=== PATIENT | male | born 1950 | race Caucasian/White ===

== ENCOUNTER → 2021-07-17 09:20 | Outpatient (BNVA) | payer MEDICARE, BC, OTHER, SELFPAY | PROVIDERS: Family Provider Nurse Practitioner; PCP Nurse Practitioner; Visit Provider Surgery | DX: Z12.11 Encounter for screening for malignant neoplasm of colon (principal); Z80.0 Family history of malignant neoplasm of digestive organs | CPT/HCPCS: 99203 ==

== ENCOUNTER → 2021-07-25 12:44 | Outpatient (BNVA) | payer MEDICARE, OTHER, BC, SELFPAY | PROVIDERS: Family Provider Nurse Practitioner; PCP Nurse Practitioner; Referring Provider Nurse Practitioner; Visit Provider Nurse Practitioner Family | DX: R39.9 Unspecified symptoms and signs involving the genitourinary system (principal); Z12.5 Encounter for screening for malignant neoplasm of prostate | CPT/HCPCS: 51741; 51798; 81003; 99203; G0103 ==

== ENCOUNTER 2021-08-29 07:05 | Day surgery (SDC) | payer MEDICARE, OTHER, BC, SELFPAY ==
[2021-08-27 10:45] VITALS: BMI 28.2
[2021-08-29 07:45] VITALS: BP 138/87; PULSE 85; RESP 18; TEMP 36.4; O2SAT 97
[2021-08-29] MEDS: sodium chloride 0.9% 1,000 ML 30 ML IV (08:10)
--- NOTE | 2021-08-29 09:07 | ANES.PREANE2 ---
Pre-Anesthetic Assessment Height/Weight: Height 1.85 m Weight 97.069 kg Temp Pulse Resp BP Pulse Ox 97.5 F L 85 18 138/87 97 08/29/21 07:45 08/29/21 07:45 08/29/21 07:45 08/29/21 07:45 08/29/21 07:45 Preop Diagnosis: diagnostic Operation Date: 08/29/21 09:30 Proposed Procedures s EGD(Not Applicable) - Guzman Pastor MD p Colonoscopy 87434/06895/z80.0/z12.11(Not Applicable) - Guzman Pastor MD Last intake: Intake Last Liquid Date 08/28/21 Last Liquid Time 23:30 Last Solid Date 08/27/21 Last Solid Time 08:00 GI GERD under good control Metabolic Hypothyroidism Anesthetic Plan ASA status: 2 Anesthesia: MAC Medications/Allergies Home Medications Medication Instructions Recorded Confirmed Last Taken Type levothyroxine 25 mcg capsule 25 mcg PO DAILY 11/15/19 08/27/21 Unknown History tplqzshk-wui-tqbfg acid 300 1 tab PO DAILY 07/25/21 08/27/21 Unknown History mcg-lycopene 600 mcg-lutein 300 mcg tablet (Centrum Silver Men) trazodone 100 mg tablet 200 mg PO DAILY tab 07/25/21 08/27/21 Unknown History ubidecarenone-omega 3-vit E 25 1 cap PO DAILY 07/25/21 08/27/21 Unknown History mg-150 (90-60) mg-200 unit capsule (Co C-53-[place] E-Fish Oil) Vitamin D (with calcium) 1 tab PO DAILY 08/27/21 08/27/21 Unknown History pantoprazole 20 mg tablet,delayed 20 mg PO DAILY 08/27/21 08/27/21 Unknown History release (Protonix) Allergies Allergy/AdvReac Type Severity Reaction Status Date / Time erythromycin base Allergy Unknown ADR-Gastrointestinal Verified 08/27/21 10:41 Upset Penicillins Allergy Unconscious Verified 08/27/21 10:41 Current Medications Generic Name Dose Route Start Last Admin Trade Name Freq PRN Reason Stop Dose Admin Sodium Chloride 1,000 mls @ 30 mls/hr 08/29/21 07:30 08/29/21 08:10 Sodium Chloride 0.9% IV 08/30/21 07:29 30 mls/hr .Q24H HARSHAD Administration PFSH Anesthesia Medical History Benign prostatic hyperplasia with lower urinary tract symptoms GERD (gastroesophageal reflux disease) Lower urinary tract symptoms (LUTS) Surgical History History of colonoscopy with polypectomy 2011 History of mandibular surgery Hx of cataract surgery Hx of hemorrhoidectomy Family History Family/Other No problems noted. Father , AT AGE 84 PANCREATIC CANCER Cancer Mother , AT AGE 88 Cancer Social History Smoking and tobacco status: never smoked Alcohol intake: current Alcohol intake frequency: holidays/special occasions only Adopted: No Caregiver/support person: No Lives independently: No Household members: spouse Marital status: Current occupational status: retired History of recent travel: No Data Anesthesia Cardiac Studies: No Data to Display
--- NOTE | 2021-08-29 09:58 | W.PM.OPSFHP ---
Same Day Surgery H&P Indication for Procedure/HPI DATE OF PROCEDURE: August 29, 2021 CHIEF COMPLAINT/INDICATIONFOR SURGICAL PROCEDURE: family history of colon cancer PREOP DIAGNOSIS: diagnostic PLANNED PROCEDURE: Operation Date: 08/29/21 09:30 Proposed Procedures s EGD(Not Applicable) - Guzman Pastor MD p Colonoscopy 35773/75292/z80.0/z12.11(Not Applicable) - Guzman Pastor MD Medications/Allergies* Home Medications Medication Instructions Recorded Confirmed Type levothyroxine 25 mcg capsule 25 mcg PO DAILY 11/15/19 08/27/21 History ktjwqeja-mre-cnitj acid 300 1 tab PO DAILY 07/25/21 08/27/21 History mcg-lycopene 600 mcg-lutein 300 mcg tablet (Centrum Silver Men) trazodone 100 mg tablet 200 mg PO DAILY tab 07/25/21 08/27/21 History ubidecarenone-omega 3-vit E 25 1 cap PO DAILY 07/25/21 08/27/21 History mg-150 (90-60) mg-200 unit capsule (Co B-11-Fgysgwq E-Fish Oil) Vitamin D (with calcium) 1 tab PO DAILY 08/27/21 08/27/21 History pantoprazole 20 mg tablet,delayed 20 mg PO DAILY 08/27/21 08/27/21 History release (Protonix) Allergies/Adverse Reactions Allergy/AdvReac Type Severity Reaction Status Date / Time erythromycin base Allergy Unknown ADR-Gastrointestinal Verified 08/27/21 10:41 Upset Penicillins Allergy Unconscious Verified 08/27/21 10:41 Current Medications: Generic Name Dose Route Start Last Admin Trade Name Freq PRN Reason Stop Dose Admin Sodium Chloride 1,000 mls @ 30 mls/hr 08/29/21 07:30 08/29/21 08:10 Sodium Chloride 0.9% IV 08/30/21 07:29 30 mls/hr .Q24H HARSHAD Administration Pertinent History/Comorbid Conditions* Medical History (Updated 07/25/21 @ 14:58 by Angie Saenz APRN) Benign prostatic hyperplasia with lower urinary tract symptoms GERD (gastroesophageal reflux disease) Lower urinary tract symptoms (LUTS) Surgical History (Updated 07/17/21 @ 09:44 by Guzman Pastor MD) History of colonoscopy with polypectomy 2011 History of mandibular surgery Hx of cataract surgery Hx of hemorrhoidectomy Family History (Updated 11/22/19 @ 15:56 by BYRON Riley) Father, AT AGE 84 PANCREATIC CANCER Mother, AT AGE 88 Cancer Father Mother Social History Smoking and tobacco status: never smoked Alcohol intake: current Alcohol intake frequency: holidays/special occasions only Adopted: No Caregiver/support person: No Lives independently: No Household members: spouse Marital status: Current occupational status: retired History of recent travel: No Pertinent Exam Findings alert, oriented x 3 and regular rate & rhythm Recommendations Surgery/Procedure today Coding Level of Care Code Acute Retail Customer Service Representative for Seymour Negron
[2021-08-29 10:27] VITALS: BP 122/80; PULSE 78; RESP 16; TEMP 36.2; O2SAT 97
[2021-08-29 10:37] VITALS: BP 100/67; PULSE 77; RESP 16; O2SAT 96
--- NOTE | 2021-08-29 13:22 | ANE.PACU2 ---
Inpatient post-anesthesia follow up: Vital signs: Temperature 97.2 F Pulse Rate 77 Respiratory Rate 16 Blood Pressure 100/67 Pulse Oximetry 96 Oxygen Delivery Me thod Room Air Oxygen Flow Rate 2 Fraction of Inspir ed Oxygen Hydration adequate: Yes Nausea and vomiting: No Pain level: 1 Mental status: Baseline
== END 2021-08-29 11:00 | disposition home or self-care (01) ==
PROVIDERS: PCP Nurse Practitioner; Visit Provider Surgery
PROC: 0DJ08ZZ Inspection of Upper Intestinal Tract, Via Natural or Artificial Opening Endoscopic (ICD-10-PCS; CPT 43235; principal; 2021-08-29 09:30)
PROC: 0DJD8ZZ Inspection of Lower Intestinal Tract, Via Natural or Artificial Opening Endoscopic (ICD-10-PCS; CPT 45378; 2021-08-29 09:30)
DX: Z12.11 Encounter for screening for malignant neoplasm of colon (principal); Z80.0 Family history of malignant neoplasm of digestive organs; K29.50 Unspecified chronic gastritis without bleeding; B96.81 Helicobacter pylori [H. pylori] as the cause of diseases classified elsewhere; K57.30 Diverticulosis of large intestine without perforation or abscess without bleeding; E03.9 Hypothyroidism, unspecified; N40.0 Benign prostatic hyperplasia without lower urinary tract symptoms
CPT/HCPCS: 43239; 88305; G0121; J2704; J7030

== ENCOUNTER → 2021-10-11 10:31 | Outpatient (BNVA) | payer MEDICARE, OTHER, BC, SELFPAY | PROVIDERS: PCP Nurse Practitioner Family; Visit Provider Urology | DX: R39.9 Unspecified symptoms and signs involving the genitourinary system (principal); R39.13 Splitting of urinary stream | CPT/HCPCS: 81003; 99213 ==

== ENCOUNTER → 2021-11-23 09:54 | Outpatient (BNVA) | payer MEDICARE, OTHER, BC, SELFPAY | PROVIDERS: PCP Nurse Practitioner Family; Visit Provider Urology | DX: R39.9 Unspecified symptoms and signs involving the genitourinary system (principal); R39.13 Splitting of urinary stream | CPT/HCPCS: 51741; 51798; 81003; 99213 ==

== ENCOUNTER 2022-05-27 15:30 | Outpatient (CLI) | payer MEDICARE, OTHER, BC, SELFPAY ==
--- NOTE | 2022-05-27 15:54 | XRR_ITS ---
PROCEDURE INFORMATION: Exam: XR Lumbosacral Spine Exam date and time: 05/27/2022 3:57 PM Age: 72 years old Clinical indication: Low back pain; Additional info: Back pain, muscle spasm, groin pain TECHNIQUE: Imaging protocol: Radiologic exam of the lumbosacral spine. Views: 6 or more views. Including flexion and extension views. COMPARISON: CR XR lumbar spine min 4V [id number] 07/20/2015 2:40 PM FINDINGS: Bones/joints: Lumbar curvature and alignment is unremarkable. There are mild degenerative changes throughout the lumbar spine with mild disc space narrowing, end plate sclerosis and endplate osteophytic lipping. There is mild facet arthrosis lower lumbar spine. Osseous structures are otherwise unremarkable. There is no fracture or spondylolisthesis. Pedicles are intact. Soft tissues: Small calcifications projecting over the left renal fossa possibly representing renal stones. XR/XR lumbar spine 6V w f/e [id number] IMPRESSION: Mild degenerative changes lumbar spine as discussed above. No acute bony abnormalities
== END 2022-05-27 15:31 | disposition home or self-care (01) ==
PROVIDERS: PCP Nurse Practitioner Family; Visit Provider Nurse Practitioner Family
DX: M62.838 Other muscle spasm (principal); M54.9 Dorsalgia, unspecified
CPT/HCPCS: 72114

== ENCOUNTER 2022-09-06 10:26 | Outpatient (CLI) | payer MEDICARE, OTHER, BC, SELFPAY ==
--- NOTE | 2022-09-06 10:40 | CT_ITS ---
WS: [id number] CT SINUSES TECHNIQUE: Noncontrast CT of the paranasal sinuses with coronal and sagittal reformatted images. CLINICAL INFORMATION: CHRONIC RHINITIS COMPARISON: CT 2012 DLP: 412.[address] scans at [facility] use at least one of these dose optimization techniques: automated e xposure control; mA and/or kV adjustment per patient size (includes targeted exams where dose is matc hed to clinical indication); or iterative reconstruction. FINDINGS: Minimal nasal septal deviation. Small leftward directed spur. Narrowing of the ostiomeatal units bila terally with mild mucosal thickening. RIGHT maria g bullosa. Mild mucosal thickening in the ethmoid ai r cells. Frontal sinuses and maxillary sinuses are well aerated. Mastoid air cells are well aerated. Bilateral Agger Nasi cells. Small polypoid lesion along the head LEFT middle turbinate and middle johnathan tus measuring 7.3 mm Normal visualized posterior nasopharynx. Normal parapharyngeal fat. CT/CT sinus wo con* [id number] IMPRESSION: 1. Minimal nasal deviation with a tiny leftward directed spur 2. Paranasal sinuses are well aerated with mild mucosal thickening ethmoid air cells. 3. Small RIGHT maria g bullosa. 4. Small polypoid lesion along the head LEFT middle turbinate and middle meatu s measuring 7.3 mm. 5. Mild narrowing of the ostiomeatal units bilaterally. 6. Mastoid air cells well aerated.
== END 2022-09-06 10:27 | disposition home or self-care (01) ==
PROVIDERS: PCP Nurse Practitioner Family; Visit Provider Internal Medicine
DX: J32.9 Chronic sinusitis, unspecified (principal); J31.0 Chronic rhinitis; J34.2 Deviated nasal septum; J34.89 Other specified disorders of nose and nasal sinuses; J33.8 Other polyp of sinus
CPT/HCPCS: 70486

== ENCOUNTER → 2022-11-04 10:43 | Outpatient (BNVA) | payer MEDICARE, OTHER, BC, SELFPAY | PROVIDERS: PCP Nurse Practitioner Family; Visit Provider Otolaryngology | DX: J34.89 Other specified disorders of nose and nasal sinuses (principal); R22.0 Localized swelling, mass and lump, head; J34.3 Hypertrophy of nasal turbinates | CPT/HCPCS: 99204 ==

== ENCOUNTER → 2022-12-04 11:25 | Outpatient (BNVA) | payer MEDICARE, OTHER, BC, SELFPAY | PROVIDERS: PCP Nurse Practitioner Family; Visit Provider Otolaryngology | DX: J34.89 Other specified disorders of nose and nasal sinuses (principal); J34.3 Hypertrophy of nasal turbinates; R22.0 Localized swelling, mass and lump, head | CPT/HCPCS: 99215 ==

== ENCOUNTER 2023-01-02 07:57 | Day surgery (SDC) | payer MEDICARE, BC, SELFPAY ==
[2023-01-01 08:34] VITALS: BMI 27.4
[2023-01-02] VITALS (10 sets, daily range): BP systolic 124–147; BP diastolic 81–94; PULSE 59–77; RESP 14–20; TEMP 36.1–36.6; O2SAT 96–100
--- NOTE | 2023-01-02 08:11 | W.PM.OPSUD ---
Surgery/Procedure H&P Update DATE OF PROCEDURE: January 02, 2023 DATE H&P PERFORMED: 12/04/22 H&P UPDATE INFORMATION: I have reviewed H&P completed within last 30 days, I have examined patient prior to procedure and No changes to prior documentation CHANGES TO PREVIOUS DOCUMENTATION: No changes PREOP DIAGNOSIS: Turbinate hypertrophy/maria g bullosa/septal mass PRIMARY INDICATION FOR PROCEDURE: Right middle turbinate maria g bullosa/left nasal septal lesion/bilateral inferior turbinate hypertrophy. PLANNED PROCEDURE: Operation Date: 01/02/23 09:50 Proposed Procedures p bilateral turbinate reduction, maria g bulosa resection with exision of intra nasal lesion-[id number],65317,J34.89,R22.0(Bilateral) - Rex Diaz MD s Endoscopic Resection of Nasal Turbinate Endoscopic Resection Middle Turbinate Maria G Bullosa(Bilateral) - Rex Diaz MD s Excision Nasal Mass/Lesion(Bilateral) - Rex Diaz MD
--- NOTE | 2023-01-02 08:49 | ANES.PREANE2 ---
Pre-Anesthetic Assessment Height/Weight: Height 1.85 m Weight 94.347 kg Temp Pulse Resp BP Pulse Ox O2 Del Method 98 F 75 18 131/81 100 Room Air 01/02/23 08:25 01/02/23 08:25 01/02/23 08:25 01/02/23 08:25 01/02/23 08:25 01/02/23 08:26 Preop Diagnosis: Turbinate hypertrophy/maria g bullosa/septal mass Operation Date: 01/02/23 09:50 Proposed Procedures p bilateral turbinate reduction, maria g bulosa resection with exision of intra nasal lesion-08700,37482,72155,J34.89,R22.0(Bilateral) - Rex Diaz MD s Endoscopic Resection of Nasal Turbinate Endoscopic Resection Middle Turbinate Maria G Bullosa(Bilateral) - Rex Diaz MD s Excision Nasal Mass/Lesion(Bilateral) - Rex Diaz MD Familial anesthetic complications: none Was Beta Irina taken within 24 hours: N/A Was Clonidine taken within 24 hours: N/A Last intake: Intake Last Liquid Date 01/01/23 Last Liquid Time 23:55 Last Solid Date 01/01/23 Last Solid Time 19:30 Social No alcohol and No tobacco Exam alert, oriented x 3, clear to auscultation bilaterally and regular rate & rhythm Airway Submandibular: within normal limits Cervical ROM: within normal limits Mallampati: Class II Dentition: chipped GI Gastroesophageal Reflux Disease Metabolic Thyroid Disease Anesthetic Plan ASA status: 2 Anesthesia: General Medications/Allergies Home Medications Medication Instructions Recorded Confirmed Last Taken Type levothyroxine 25 mcg capsule 25 mcg PO DAILY 11/15/19 01/01/23 01/01/23 History uyatyiij-hg-qyyaf 300 mcg-K 60 1 tab PO DAILY 07/25/21 01/01/23 01/01/23 History mcg-lycop 600 mcg-lutein 300 mcg tablet (Centrum Silver Men) trazodone 100 mg tablet 200 mg PO DAILY 07/25/21 01/01/23 01/01/23 History ubidecarenone-omega 3-vit E 25 1 cap PO DAILY 07/25/21 01/01/23 01/01/23 History mg-150 (90-60) mg-200 unit capsule (Co B-94-Gmopcxc E-Fish Oil) Vitamin D (with calcium) 1 tab PO DAILY 08/27/21 12/04/22 Unknown History pantoprazole 20 mg tablet,delayed 20 mg PO DAILY 08/27/21 01/01/23 01/01/23 History release (Protonix) metronidazole 500 mg tablet 500 mg PO BID 14 days #28 tabs 08/31/21 01/01/23 01/01/23 Rx fluticasone propionate 50 1 spray intranasal DAILY 11/04/22 01/01/23 01/01/23 History mcg/actuation nasal spray,suspension (Allergy Relief (fluticasone)) loratadine 10 mg tablet (Allergy 10 mg PO DAILY 11/04/22 01/01/23 01/01/23 History Relief (loratadine)) Allergies Allergy/AdvReac Type Severity Reaction Status Date / Time erythromycin base Allergy Unknown ADR-Gastrointestinal Verified 01/01/23 08:31 Upset Penicillins Allergy Unconscious Verified 01/01/23 08:31 PENDING SALE TO [facility] Anesthesia Medical History Benign prostatic hyperplasia with lower urinary tract symptoms GERD (gastroesophageal reflux disease) Helicobacter pylori gastritis Lower urinary tract symptoms (LUTS) Surgical History H/O esophagogastroduodenoscopy (08/29/21) History of colonoscopy with polypectomy (08/29/21) 2011 History of mandibular surgery Hx of cataract surgery Hx of hemorrhoidectomy Family History Family/Other No problems noted. Father , AT AGE 84 PANCREATIC CANCER Cancer Mother , AT AGE 88 Cancer Social History Smoking and tobacco/nicotine status: never used tobacco/nicotine Alcohol intake: current Alcohol intake frequency: holidays/special occasions only Substance/Drug Use: never Adopted: No Caregiver/support person: No Lives independently: No Household members: spouse Marital status: Current occupational status: retired Data Anesthesia Cardiac Studies: No Data to Display
[2023-01-02] MEDS: sodium chloride 0.9% 1,000 ML 30 ML IV (08:52)
[2023-01-02] MEDS: famotidine 20 mg/2 mL INJ IVP (08:54)
--- NOTE | 2023-01-02 08:55 | ECG_ITS ---
[facility] Test Date: 2023-01-02 Pat Name: Rolo Muse Department: Room: Gender: Male Environmental Health And Safety Leader: : 1950 Requested By: Mann Jansen Order Number: [id number] Sylvester MD: Terri Goodwin M.D. Measurements Intervals [place] Rate: 63 P: 84 ID: 175 QRS: 69 QRSD: 84 T: 68 QT: 394 QTc: 405 Interpretive Statements SINUS RHYTHM No previous ECG available for comparison Electronically Signed On 01-02-2023 21:37:54 CDT by Terri Goodwin M.D. [email or web address]
[2023-01-02] MEDS: levofloxacin-dextrose 5 % 750 MG/150 ML PREMIX 100 MG IV (09:57)
[2023-01-02] MEDS: oxymetazoline 0.05% Nasal Spray 15 mL 1 SPRAY NOSTRIL-B (10:59)
[2023-01-02] MEDS: lidocaine-epi 2% 1.7mL Cartridge (OR Only) 10.8 ML XX (11:00)
[2023-01-02] MEDS: neomycin-poly-bacitracin oint 28 gm 1 APPLIC TOPICAL (11:00)
--- NOTE | 2023-01-02 11:07 | P.OP_ITS ---
Operative Report Date of procedure: January 02, 2023 Pre-op diagnosis: Left nasal septal mass/right middle turbinate maria g bullosa/bilateral inferior turbinate hypertrophy Post-op diagnosis: Same Post-op findings: Whitish-yellow 1 cm mass left mid septum removed with 1 single biopsy specimen. Inferior turbinates 4+ and reduced with submucous resection to 2+ bilaterally. Majority of bulbous portion of right middle turbinate maria g bullosa resected endoscopically Procedure done: Endoscopic resection of right middle turbinate maria g bullosa. Bilateral inferior turbinate submucous resection. Excisional biopsy of mass of left nasal septum. Implants: 2 Telfa packs and 2 septal splints Specimens removed/disposition: Same Pathology: Specimens include left nasal septal mass. Right middle turbinate maria g bullosa. Right inferior turbinate partial resection. Left inferior turbinate partial resection. Surgeon: Rex Diaz MD Anesthesia: General and Local Estimated blood loss: 20 mL Complications: No complications encountered Findings: Patient has had chronic nasal obstruction for an extended period of time. This has been refractory to medical therapy including steroid nasal sprays and antihistamines. The septum is very straight but has a mass in the midportion on the left side. The inferior turbinates are 4+ hypertrophic. The right middle turbinate has a large maria g bullosa based on CT scan. Brief History: 72-year-old male patient is being brought to the operating room at this time to undergo excision for biopsy of left mid nasal septal mass. She also has bilateral inferior turbinates that are 4+ and need to be reduced and she has a right middle turbinate maria g bullosa based on CT scan which is obstructing airflow superiorly on the right side. Therefore the patient is being brought to the operating room at this time to undergo excision of the nasal septal mass reduction of the inferior turbinates with submucous resection and endoscopic resection of the right middle turbinate maria g bullosa. The procedure its risks and complications of been explained in detail to the patient in the office setting. These risks include bleeding infection numbness scarring swelling bruising recurrence need for additional treatment continued nasal congestion and need for additional treatment or surgery in the future or potential need for steroid sprays in the future. With all these things understood and with anesthetic risks described as well informed consent was granted and witnessed. Procedure: Description of procedure: The patient was placed on the operating table in the supine position. Adequate general endotracheal tube anesthesia was obtained. He was then positioned into a semirecumbent position and the body tilted towards the surgeon towards the right side. The timeout was accomplished identifying the patient date of plan procedure allergies fire risk and medications given. With all in agreement the procedure continued. The patient's nose was packed with 6 cottonoids soaked in 12-hour Afrin. After several minutes and after trimming the nasal hairs I removed these packs and infiltrated the left side of the septum as well as both inferior turbinates and the right middle turbinate maria g bullosa with local. A total of 10.8 mL of 2% Xylocaine with 1- 100,000 epinephrine was utilized. Then the nose was repacked with the 6 cottonoids. The patient was then prepped and draped in usual fashion. Afrin packs were once again removed from the nose. The inferior turbinates were outfractured with a [place] elevator. This gave access to the abnormal mass on the mid septum on the left side. This appeared to be whitish-yellow in color and exophytic and raised off the septum by approximately 2 to 3 mm. This was excised and 1 bite of the Ayo forcep. This was taken down to the level of the periosteum at that point. This was sent as a separate specimen. Then attention was turned to the right middle turbinate maria g bullosa. Using endoscopic visualization and direct visualization turbinate scissors were used to cut and start the removal at the anteriormost portion. The superior attachment was left in place. Then the medial and lateral aspects of the maria g bullosa were to the point of the posterior attachment. This was removed in a piecemeal fashion. The maria g bullosa was left open superiorly. This was no longer obstructing. Then I turned attention to the inferior turbinates. Since they did not shrink down much with the Afrin and the injectable local with epinephrine I cauterized the medial aspect with a needle tip Bovie and since that did little to also reduce the mass size of the inferior turbinate I excised it with scissors removing the distal aspect of the soft tissue and some of the more proximal bone creating a submucous resection. This was done from anterior to posterior. Bleeding sites were controlled with needle tip Bovie. An identical procedure was then done on the left inferior turbinate. After the inferior turbinates were reduced they were to 2+ in size. A [place] elevator was able to be passed through both nasal chambers to the nasopharynx without obstruction. The nasal cavities were suctioned clean. 2 septal splints were coated with Neosporin and 1 was applied each side of the septum. These were then sutured in a through and through fashion with 3-0 Prolene. Then 2 Telfa packs were cut to size coated with Neosporin and 1 was applied each side of the nose extending from anterior to posterior. With this accomplished the mouth and oropharynx were suctioned clean. There was no sign of any active bleeding. The face was cleansed. It was dried. A drip pad was placed under the patient's nose and taped from cheek to cheek. The mouth was suctioned 1 last time. Drapes were removed and the patient was returned to anesthesia for wake-up and extubation. He tolerated the procedure well had an estimated blood loss of 20 mL and arrived in recovery in stable condition.
[2023-01-02] MEDS: fentaNYL 50 mcg/mL INJ 2mL IVP (11:30)
[2023-01-02] MEDS: HYDROcodone-acetaminophen 5-325 mg Tablet 1 TAB PO (12:29)
--- NOTE | 2023-01-02 12:50 | ANE.PACU2 ---
Inpatient post-anesthesia follow up: Airway intact: Yes Vital signs: Temperature 97.5 F Pulse Rate 67 Respiratory Rate 15 Blood Pressure 133/83 Pulse Oximetry 96 Oxygen Delivery Me thod Room Air Oxygen Flow Rate Fraction of Inspir ed Oxygen Hydration adequate: Yes Nausea and vomiting: No Pain level: 3 Mental status: Baseline
== END 2023-01-02 12:43 | disposition home or self-care (01) ==
PROVIDERS: PCP Nurse Practitioner Family; Visit Provider Otolaryngology
PROC: (CPT 30117; principal; 2023-01-02 09:40)
PROC: (CPT 30117; 2023-01-02 09:40)
PROC: 0HB1XZZ Excision of Face Skin, External Approach (ICD-10-PCS; CPT 30117; 2023-01-02 09:40)
DX: J34.89 Other specified disorders of nose and nasal sinuses (principal); J33.8 Other polyp of sinus; N40.1 Benign prostatic hyperplasia with lower urinary tract symptoms; N13.8 Other obstructive and reflux uropathy
CPT/HCPCS: 30117; 30130; 31240; 88305; 88307; 88311; 93005; J1100; J1956; J2405; J2704; J2710; J3010; J3490; J7030

== ENCOUNTER → 2023-01-10 11:16 | Outpatient (BNVA) | payer MEDICARE, OTHER, SELFPAY | PROVIDERS: PCP Nurse Practitioner Family; Visit Provider Otolaryngology | DX: Z48.810 Encounter for surgical aftercare following surgery on the sense organs (principal) | CPT/HCPCS: 99024 ==

== ENCOUNTER → 2023-01-27 09:27 | Outpatient (BNVA) | payer MEDICARE, OTHER, SELFPAY | PROVIDERS: PCP Nurse Practitioner Family; Visit Provider Otolaryngology | DX: Z48.810 Encounter for surgical aftercare following surgery on the sense organs (principal) | CPT/HCPCS: 99024 ==

== ENCOUNTER → 2023-02-24 13:34 | Outpatient (BNVA) | payer MEDICARE, BC, OTHER, SELFPAY | PROVIDERS: PCP Nurse Practitioner Family; Visit Provider Nurse Practitioner Family | DX: D48.5 Neoplasm of uncertain behavior of skin (principal); L72.0 Epidermal cyst; L57.8 Other skin changes due to chronic exposure to nonionizing radiation; D22.5 Melanocytic nevi of trunk; L57.0 Actinic keratosis | CPT/HCPCS: 11102; 17000; 99203 ==

== ENCOUNTER 2023-03-25 12:34 | Outpatient (CLI) | payer MEDICARE, BC, SELFPAY ==
--- NOTE | 2023-03-25 12:43 | XR_ITS ---
WS: [id number] Chest 2 views, 03/25/2023 Clinical Data: COUGH Comparison: None. Findings: No nodules, masses or effusions are seen. The heart is normal. The pulmonary vascularity is not increased. No pneumonia or pneumothorax is seen. The diaphragms are flattened. The aortic arch s hows mild tortuosity. Impression: Atherosclerosis and hyperinflation.
== END 2023-03-25 12:35 | disposition home or self-care (01) ==
LOC: RAD 12:38
PROVIDERS: PCP Nurse Practitioner Family; Visit Provider Nurse Practitioner Family
DX: R05.9 Cough, unspecified (principal); R91.8 Other nonspecific abnormal finding of lung field; I70.90 Unspecified atherosclerosis
CPT/HCPCS: 71046

== ENCOUNTER → 2023-04-30 10:47 | Outpatient (BNVA) | payer MEDICARE, BC, SELFPAY | PROVIDERS: PCP Nurse Practitioner Family; Visit Provider Dermatology | DX: D03.59 Melanoma in situ of other part of trunk (principal); C44.519 Basal cell carcinoma of skin of other part of trunk | CPT/HCPCS: 11603; 12035 ==

== ENCOUNTER 2023-05-13 12:08 | Outpatient (CLI) | payer MEDICARE, BC, OTHER, SELFPAY ==
--- NOTE | 2023-05-13 12:10 | CT_ITS ---
WS: [id number] CT CHEST, ABDOMEN AND PELVIS NONCONTRAST HISTORY: COUGH,UNSPECIFIED ABDOMINAL PAIN, GASTRO-ESOPHAGEAL REFLUX disease, history of melanoma. TECHNIQUE: Contiguous 5 mm axial imaging performed through the chest, abdomen and pelvis without IV c ontrast, oral contrast has been provided. Coronal and sagittal reformats chest. Coronal and sagittal reformats through the abdomen and pelvis. All CT scans at [facility] use at least one of thes e dose optimization techniques: automated exposure control; mA and/or kV adjustment per patient size (includes targeted exams where dose is matched to clinical indication); or iterative reconstruction. CONTRAST: None DLP: 875.93 mGy.cm COMPARISON: None available. Chest CT: Mild pulmonary hyperinflation. Multiple small nodules in the anterior RIGHT middle lobe mariangel ng the bronchial tree. There are additional similar nodules which may be calcified along the anterior RIGHT lower lobe. Mild bronchial wall thickening at the LEFT lung base. There is no mass. No pneumon ia. Normal aorta and pulmonary artery sizes. Normal heart. No adenopathy. No pericardial or pleural e ffusion. Soft tissue nodule is ill-defined measuring 1.3 x 2.9 cm in the posterior RIGHT lower thorax, posteri or to the 11th rib. Very nonspecific nodule no additional nodules. Abdomen CT: Liver is normal size. Low-attenuation mass lateral segment LEFT lobe measuring 1.6 cm is most consistent with a cyst. Cannot further characterized without IV contrast. Gallbladder and spleen are negative. Normal pancreas. Normal adrenal glands. Mild bilateral perinephric stranding. Bilatera l nonobstructing renal calculi. Several parapelvic cyst RIGHT kidney. Low-attenuation mass central la teral LEFT kidney measures 2.3 cm. Hounsfield units are low. This may be a small cyst. There are susie tional too small to characterize hypodensities. Cannot characterize further without IV contrast. Mild atherosclerosis aorta. Retroaortic LEFT renal vein. Stomach is normally distended with oral contrast. No small bowel obstruction. Mild diffuse constipati on. Normal appendix. Numerous diverticula throughout the distal colon. Diverticular burden has signif icantly increased in the sigmoid colon. No acute diverticulitis. No adenopathy or free fluid. Umbilical hernia containing fat only. Pelvic CT: Normally distended urinary bladder. Prostate measures 5.5 x 5.3 x 7.3 cm. There are severa l calcifications in the dependent portion of the urinary bladder. No free fluid or adenopathy in the pelvis. Mild increase in thoracic kyphosis. No osteoblastic or osteolytic bone disease. IMPRESSION: 1. There is several nodules in the RIGHT middle lobe and bilaterally in the lower lobes. Distributio n suggests this may be related to tree-in-bud airspace disease and may be chronic. No prior studies f or comparison. There is no focal mass or consolidation. Recommend 6-month chest CT follow-up. 2. No mediastinal or hilar adenopathy. 3. No abdominal or pelvic adenopathy. 4. Low-attenuation mass in the LEFT lobe of the liver. Most likely hepatic cyst. 5. Numerous bilateral renal calculi which are nonobstructing. 6. Small calcifications in the urinary bladder. Probably passed from the kidneys. 7. Advanced diverticular disease in the sigmoid colon without acute diverticulitis. 8. Prostate enlargement. 9. Ill-defined soft tissue nodule in the posterior RIGHT lower thorax measures 1.3 x 2.9 cm. This ca n be reevaluated by ultrasound. Favor this is benign. Recommend follow-up ultrasound at this time.
[2023-05-13] MEDS: iohexol 350 mg/mL 500 mL Btl (per mL) PO (12:31)
== END 2023-05-13 12:09 | disposition home or self-care (01) ==
LOC: RAD 12:09
PROVIDERS: PCP Nurse Practitioner Family; Visit Provider Nurse Practitioner Family
DX: R05.9 Cough, unspecified (principal); R91.8 Other nonspecific abnormal finding of lung field; K21.9 Gastro-esophageal reflux disease without esophagitis; Z85.820 Personal history of malignant melanoma of skin; R16.0 Hepatomegaly, not elsewhere classified; N20.0 Calculus of kidney; N21.0 Calculus in bladder; K57.30 Diverticulosis of large intestine without perforation or abscess without bleeding; N40.0 Benign prostatic hyperplasia without lower urinary tract symptoms
CPT/HCPCS: 71250; 74176; 99213; Q9967

== ENCOUNTER → 2023-05-22 10:58 | Outpatient (BNVA) | payer MEDICARE, BC, SELFPAY | PROVIDERS: PCP Nurse Practitioner Family; Visit Provider Surgery | DX: K21.9 Gastro-esophageal reflux disease without esophagitis (principal); R10.13 Epigastric pain | CPT/HCPCS: 99214 ==

== ENCOUNTER 2023-05-29 07:44 | Outpatient (CLI) | payer MEDICARE, OTHER, SELFPAY ==
--- NOTE | 2023-05-29 08:00 | US_ITS ---
WS: [id number] RIGHT UPPER QUADRANT ULTRASOUND HISTORY: Gastroesophageal reflux disease COMPARISON: None available. Liver: 14.6 cm in length. Normal size liver. Hepatic cyst measures 8 x 6 x 5 mm in the central RIGHT lobe. No mass. Portal Vein: Normal hepatopetal flow with monophasic waveform. Gallbladder: Normally distended gallbladder. There is a small hyperplastic polyp measuring 4 x 4 x 4 mm. No stones. No wall thickening. CBD: No images submitted. Pancreas: Nonvisualized. Right kidney: 10.0 cm in length. No renal obstruction. Small parapelvic cysts were noted on recent CT . Aorta and IVC: Unremarkable abdominal aorta and IVC. No ascites. IMPRESSION: 1. No cholelithiasis. 2. Small hyperplastic gallbladder polyp. 3. Small hepatic cyst. 4. No renal obstruction.
== END 2023-05-29 07:45 | disposition home or self-care (01) ==
LOC: RAD 07:51
PROVIDERS: PCP Nurse Practitioner Family; Visit Provider Surgery
DX: K82.4 Cholesterolosis of gallbladder (principal); K21.9 Gastro-esophageal reflux disease without esophagitis; R10.13 Epigastric pain
CPT/HCPCS: 76705

== ENCOUNTER 2023-07-02 06:14 | Day surgery (SDC) | payer MEDICARE, OTHER, BC, SELFPAY ==
[2023-07-02 06:30] VITALS: BP 124/86; PULSE 90; RESP 18; TEMP 36.4; O2SAT 97; BMI 26.6
[2023-07-02] MEDS: sodium chloride 0.9% 1,000 ML 30 ML IV (06:37)
--- NOTE | 2023-07-02 06:46 | ANES.PREANE2 ---
Pre-Anesthetic Assessment Height/Weight: Height 1.85 m Weight 91.626 kg Temp Pulse Resp BP Pulse Ox O2 Del Method 97.5 F L 90 18 124/86 97 Room Air 07/02/23 06:30 07/02/23 06:30 07/02/23 06:30 07/02/23 06:30 07/02/23 06:30 07/02/23 06:30 Preop Diagnosis: GERD Operation Date: 07/02/23 08:00 Proposed Procedures p 55224 egd K21.9,R10.13(Not Applicable) - Ok Bernabe DO Familial anesthetic complications: None Was Beta Irina taken within 24 hours: N/A Was Clonidine taken within 24 hours: N/A Last intake: Intake Last Liquid Date 07/01/23 Last Liquid Time 23:00 Last Solid Date 07/01/23 Last Solid Time 20:00 Social No alcohol and No tobacco Exam alert, oriented x 3 and regular rate & rhythm Airway Submandibular: within normal limits Mallampati: Class II Dentition: full History/ROS No significant history except as noted Pulmonary Chronic Obstructive Pulmonary Disease has inhaler, does not use them CV/HEM None reported None reported Hepatic None reported GI Gastroesophageal Reflux Disease Metabolic Thyroid Disease Musc/skel None reported Neuropsych None reported Anesthetic Plan ASA status: 2 Anesthesia: Anesthesia Evaluation and MAC Risk of > 500 ml blood loss (7ml/kg in children): No Medications/Allergies Home Medications Medication Instructions Recorded Confirmed Last Taken Type levothyroxine 25 mcg capsule 25 mcg PO DAILY 11/15/19 07/02/23 07/02/23 History oqriwvht-sb-dcopw 300 mcg-K 60 1 tab PO DAILY 07/25/21 07/02/23 07/01/23 History mcg-lycop 600 mcg-lutein 300 mcg tablet (Centrum Silver Men) trazodone 100 mg tablet 200 mg PO DAILY 07/25/21 07/02/23 07/01/23 History ubidecarenone-omega 3-vit E 25 1 cap PO DAILY 07/25/21 07/02/23 07/01/23 History mg-150 (90-60) mg-200 unit capsule (Co N-60-Oeaunwb E-Fish Oil) Vitamin D (with calcium) 1 tab PO DAILY 08/27/21 07/02/23 07/01/23 History fluticasone propionate 50 1 spray intranasal DAILY PRN 11/04/22 07/02/23 07/01/23 History mcg/actuation nasal allergies spray,suspension (Allergy Relief (fluticasone)) loratadine 10 mg tablet (Allergy 10 mg PO DAILY PRN allergies 11/04/22 07/02/23 07/01/23 History Relief (loratadine)) omeprazole 20 mg capsule,delayed 20 mg PO DAILY 06/30/23 07/02/23 07/01/23 History release Allergies Allergy/AdvReac Type Severity Reaction Status Date / Time erythromycin base Allergy Unknown ADR-Gastrointestinal Verified 07/02/23 06:28 Upset Penicillins Allergy Unconscious Verified 07/02/23 06:28 Current Medications Generic Name Dose Route Start Last Admin Trade Name Freq PRN Reason Stop Dose Admin Sodium Chloride 1,000 mls @ 30 mls/hr 07/02/23 06:30 07/02/23 06:37 Sodium Chloride 0.9% IV 07/03/23 06:29 30 mls/hr .Q24H HARSHAD Administration PFSH Anesthesia Medical History Helicobacter pylori gastritis Lower urinary tract symptoms (LUTS) Benign prostatic hyperplasia with lower urinary tract symptoms GERD (gastroesophageal reflux disease) Surgical History Hx of sinus surgery H/O esophagogastroduodenoscopy (08/29/21) History of mandibular surgery History of colonoscopy with polypectomy (08/29/21) 2011 Hx of cataract surgery Hx of hemorrhoidectomy Family History Family/Other No problems noted. Father , AT AGE 84 PANCREATIC CANCER Cancer Mother , AT AGE 88 Cancer Social History Smoking and tobacco/nicotine status: never used tobacco/nicotine Alcohol intake: current Alcohol intake frequency: holidays/special occasions only Substance/Drug Use: never Adopted: No Caregiver/support person: No Lives independently: No Household members: spouse Marital status: Current occupational status: retired Data Anesthesia Cardiac Studies: No Data to Display
--- NOTE | 2023-07-02 06:59 | PM.HP ---
Providers/Chief Complaint Primary Care Provider: Ashleigh Hughes NP Chief Complaint: K21.9, R10.13 History of Present Illness Rolo Muse is a 73 year old male Review of Systems General: Reports: 10 or more systems reviewed and unremarkable except in HPI and below Medications/Allergies Home Medications Medication Instructions Recorded Confirmed Last Taken Type levothyroxine 25 mcg capsule 25 mcg PO DAILY 11/15/19 07/02/23 07/02/23 History itpwlxid-gl-gkbav 300 mcg-K 60 1 tab PO DAILY 07/25/21 07/02/23 07/01/23 History mcg-lycop 600 mcg-lutein 300 mcg tablet (Centrum Silver Men) trazodone 100 mg tablet 200 mg PO DAILY 07/25/21 07/02/23 07/01/23 History ubidecarenone-omega 3-vit E 25 1 cap PO DAILY 07/25/21 07/02/23 07/01/23 History mg-150 (90-60) mg-200 unit capsule (Co P-27-Izildrq E-Fish Oil) Vitamin D (with calcium) 1 tab PO DAILY 08/27/21 07/02/23 07/01/23 History fluticasone propionate 50 1 spray intranasal DAILY PRN 11/04/22 07/02/23 07/01/23 History mcg/actuation nasal allergies spray,suspension (Allergy Relief (fluticasone)) loratadine 10 mg tablet (Allergy 10 mg PO DAILY PRN allergies 11/04/22 07/02/23 07/01/23 History Relief (loratadine)) omeprazole 20 mg capsule,delayed 20 mg PO DAILY 06/30/23 07/02/23 07/01/23 History release Allergies Allergy/AdvReac Type Severity Reaction Status Date / Time erythromycin base Allergy Unknown ADR-Gastrointestinal Verified 07/02/23 06:28 Upset Penicillins Allergy Unconscious Verified 07/02/23 06:28 PFSH Acute PFSH: Medical History Helicobacter pylori gastritis Lower urinary tract symptoms (LUTS) Benign prostatic hyperplasia with lower urinary tract symptoms GERD (gastroesophageal reflux disease) Surgical History Hx of sinus surgery H/O esophagogastroduodenoscopy (08/29/21) History of mandibular surgery History of colonoscopy with polypectomy (08/29/21) 2012 Hx of cataract surgery Hx of hemorrhoidectomy Family History Family/Other No problems noted. Father , AT AGE 84 PANCREATIC CANCER Cancer Mother , AT AGE 88 Cancer Social History Smoking and tobacco/nicotine status: never used tobacco/nicotine Alcohol intake: current Alcohol intake frequency: holidays/special occasions only Substance/Drug Use: never Adopted: No Caregiver/support person: No Lives independently: No Household members: spouse Marital status: Current occupational status: retired Vitals/I&O/Wt Last Vital Signs Temp 97.5 F L 07/02/23 06:30 Pulse 90 07/02/23 06:30 Resp 18 07/02/23 06:30 BP 124/86 07/02/23 06:30 Pulse Ox 97 07/02/23 06:30 O2 Del Method Room Air 07/02/23 06:30 Weight last 48 hrs Weight 202 lb A&P Assessment and plan (1) Epigastric pain: (2) GERD with esophagitis: Qualifiers: Esophagitis bleeding: without hemorrhage Qualified Code(s): K21.00 - Gastro-esophageal reflux disease with esophagitis, without bleeding Plan EGD Attestations Medical Necessity Statement*: Home Coding Level of Care Code Acute Code for Chg Fwd Diagnoses Epigastric pain R10.13 Gastroesophageal reflux disease with esophagitis without hemorrhage K21.00 Esophagitis bleeding: without hemorrhage
[2023-07-02 07:13] VITALS: BP 116/78; PULSE 67; RESP 14; TEMP 36.1; O2SAT 98
[2023-07-02 07:27] VITALS: BP 120/80; PULSE 64; RESP 16; O2SAT 96
[2023-07-02 07:40] VITALS: BP 131/70; PULSE 63; RESP 16; O2SAT 96
--- NOTE | 2023-07-02 15:23 | ANE.PACU2 ---
Inpatient post-anesthesia follow up: Airway intact: Yes Vital signs: Temperature 97.0 F Pulse Rate 63 Respiratory Rate 16 Blood Pressure 131/70 Pulse Oximetry 96 Oxygen Delivery Me thod Room Air Oxygen Flow Rate Fraction of Inspir ed Oxygen Hydration adequate: Yes Nausea and vomiting: No Pain level: 2 Mental status: Baseline
== END 2023-07-02 07:55 | disposition home or self-care (01) ==
PROVIDERS: PCP Nurse Practitioner Family; Visit Provider Surgery
PROC: 0DJ08ZZ Inspection of Upper Intestinal Tract, Via Natural or Artificial Opening Endoscopic (ICD-10-PCS; CPT 43235; principal; 2023-07-02 08:00)
DX: R10.13 Epigastric pain (principal); K21.00 Gastro-esophageal reflux disease with esophagitis, without bleeding; N40.1 Benign prostatic hyperplasia with lower urinary tract symptoms; N13.8 Other obstructive and reflux uropathy; J44.9 Chronic obstructive pulmonary disease, unspecified
CPT/HCPCS: 43239; 88305; 88342; J2704; J7030

== ENCOUNTER 2023-07-03 13:55 | Outpatient (CLI) | payer MEDICARE, OTHER, BC, SELFPAY ==
--- NOTE | 2023-07-03 14:01 | US_ITS ---
WS: [id number] THYROID ULTRASOUND HISTORY: NODULE OF SOFT TISSUE COMPARISON: None available. Right lobe: 1.0 cm x 1.7 cm x 3.3 cm (w x ap x l). Volume: 2.7 cm3. Mild heterogeneity within the central gland. This is an ill-defined area of decreased echogenicity ma y be a developing nodule. This area measures 0.7 x 0.5 x 0.9 cm. No echogenic focus or calcification. Left lobe: 1.3 cm x 1.5 cm x 2.9 cm (w x ap x l). Volume: 2.7 cm3. Normal size and echotexture. No significant or dominant nodules are present. Isthmus: 0.2 cm. IMPRESSION: 1. Subcentimeter vague hypoechoic area in the central RIGHT thyroid. Due to the small size and appea shirley TI-RADS does not recommend follow-up. 2. Negative LEFT thyroid.
== END 2023-07-03 13:56 | disposition home or self-care (01) ==
LOC: RAD 13:55
PROVIDERS: PCP Nurse Practitioner Family; Visit Provider Nurse Practitioner Family
DX: M79.89 Other specified soft tissue disorders (principal)
CPT/HCPCS: 76536

== ENCOUNTER → 2023-07-17 14:21 | Outpatient (BNVA) | payer MEDICARE, OTHER, BC, SELFPAY | PROVIDERS: PCP Nurse Practitioner Family; Visit Provider Surgery | DX: Z09 Encounter for follow-up examination after completed treatment for conditions other than malignant neoplasm (principal); K21.9 Gastro-esophageal reflux disease without esophagitis; R10.13 Epigastric pain; K82.4 Cholesterolosis of gallbladder | CPT/HCPCS: 99214 ==

== ENCOUNTER 2023-08-01 09:29 | Outpatient (CLI) | payer MEDICARE, OTHER, BC, SELFPAY ==
--- NOTE | 2023-08-01 10:00 | NM_ITS ---
WS: [id number] NUCLEAR MEDICINE HIDA SCAN WITH GALLBLADDER EJECTION FRACTION HISTORY: epigastric pain COMPARISON: Gallbladder ultrasound 05/29/2023 TECHNIQUE: The patient was intravenously injected with 7.4 mCi of TC99m Mebrofenin. Immediate imaging over the right upper quadrant was followed by 5 minute image and additional images for a total of 60 minutes. Normal uptake of radiotracer throughout the liver. Activity identified in the gallbladder at 20 minutes and well distended by 60 minutes. Activity in the proximal small bowel was seen by 15 minutes. Good washout of the radiotracer from the liver by 60 minutes. The patient then drank 8 ounces of Ensure Plus. Ejection fraction at 60 minutes was 90%. Normal GB ej ection fraction is 35-75%. Post fatty meal symptoms: None. NM/NM hepatobiliary w phar* [id number] IMPRESSION: 1. Normal HIDA scan. 2. Normal gallbladder ejection fraction.
== END 2023-08-01 09:30 | disposition home or self-care (01) ==
LOC: RAD 09:29
PROVIDERS: PCP Nurse Practitioner Family; Visit Provider Surgery
DX: R10.13 Epigastric pain (principal)
CPT/HCPCS: 78227; A9537

== ENCOUNTER 2023-08-05 08:19 | Day surgery (SDC) | payer MEDICARE, OTHER, BC, SELFPAY ==
[2023-08-05] VITALS (10 sets, daily range): BP systolic 120–139; BP diastolic 68–102; PULSE 51–93; RESP 17–18; TEMP 36.1–36.6; O2SAT 94–100; BMI 26.4
--- NOTE | 2023-08-05 08:48 | W.PM.OPSUD ---
Surgery/Procedure H&P Update DATE OF PROCEDURE: August 05, 2023 DATE H&P PERFORMED: 07/17/23 H&P UPDATE INFORMATION: I have reviewed H&P completed within last 30 days, I have examined patient prior to procedure and No changes to prior documentation PLANNED PROCEDURE: Operation Date: 08/05/23 10:15 Proposed Procedures p Laparoscopic Cholecystectomy 04329, K80.50(Not Applicable) - Ok Bernabe, DO
--- NOTE | 2023-08-05 08:52 | ANES.PREANE2 ---
Pre-Anesthetic Assessment Height/Weight: Height 1.85 m Operation Date: 08/05/23 10:15 Proposed Procedures p Laparoscopic Cholecystectomy 68400, K80.50(Not Applicable) - Ok Bernabe, DO Social No tobacco Exam alert, oriented x 3, clear to auscultation bilaterally and regular rate & rhythm Airway Submandibular: within normal limits Pulmonary None reported CV/HEM None reported None reported Hepatic None reported GI None reported Metabolic Thyroid Disease [facility] None reported Neuropsych None reported Anesthetic Plan ASA status: 2 Anesthesia: General Risk of > 500 ml blood loss (7ml/kg in children): No Medications/Allergies Home Medications Medication Instructions Recorded Confirmed Last Taken Type levothyroxine 25 mcg capsule 25 mcg PO DAILY 11/15/19 08/04/23 07/02/23 History cifvynfu-ql-nilyv 300 mcg-K 60 1 tab PO DAILY 07/25/21 08/04/23 08/04/23 History mcg-lycop 600 mcg-lutein 300 mcg tablet (Centrum Silver Men) trazodone 100 mg tablet 200 mg PO DAILY 07/25/21 08/04/23 08/04/23 History ubidecarenone-omega 3-vit E 25 1 cap PO DAILY 07/25/21 08/04/23 08/04/23 History mg-150 (90-60) mg-200 unit capsule (Co K-59-Vmklcwu E-Fish Oil) Vitamin D (with calcium) 1 tab PO DAILY 08/27/21 08/04/23 08/04/23 History fluticasone propionate 50 1 spray intranasal DAILY PRN 11/04/22 08/04/23 07/01/23 History mcg/actuation nasal allergies spray,suspension (Allergy Relief (fluticasone)) loratadine 10 mg tablet (Allergy 10 mg PO DAILY PRN allergies 11/04/22 08/04/23 07/01/23 History Relief (loratadine)) pantoprazole 40 mg tablet,delayed 40 mg PO BID 6 weeks #84 tabs 07/02/23 08/04/23 08/04/23 Rx release Allergies Allergy/AdvReac Type Severity Reaction Status Date / Time erythromycin base Allergy Unknown ADR-Gastrointestinal Verified 08/04/23 10:38 Upset Penicillins Allergy Unconscious Verified 08/04/23 10:38 [facility] Anesthesia Medical History Helicobacter pylori gastritis Lower urinary tract symptoms (LUTS) Benign prostatic hyperplasia with lower urinary tract symptoms GERD (gastroesophageal reflux disease) Surgical History Hx of sinus surgery H/O esophagogastroduodenoscopy (08/29/21) History of mandibular surgery History of colonoscopy with polypectomy (08/29/21) 2011 Hx of cataract surgery Hx of hemorrhoidectomy Family History Family/Other No problems noted. Father , AT AGE 84 PANCREATIC CANCER Cancer Mother , AT AGE 88 Cancer Social History Smoking and tobacco/nicotine status: never used tobacco/nicotine Alcohol intake: current Alcohol intake frequency: holidays/special occasions only Substance/Drug Use: never Adopted: No Caregiver/support person: No Lives independently: No Household members: spouse Marital status: Current occupational status: retired Data Anesthesia Cardiac Studies: No Data to Display
[2023-08-05] MEDS: sodium chloride 0.9% 1,000 ML 30 ML IV (09:09)
[2023-08-05] MEDS: vancomycin 1,500 MG/300 ML PIGGYBACK 200 MG IV (09:12)
[2023-08-05] MEDS: lidocaine-epi 2% PF 1:200,000 20 mL SDV XX (09:49)
--- NOTE | 2023-08-05 10:02 | P.OP_ITS ---
Operative Report Date of procedure: August 05, 2023 Surgeon: Ok Bernabe DO Brief History: This very pleasant 73-year-old gentleman was diagnosed with biliary dyskinesia. He also had a 4 mm gallbladder polyp. Laparoscopic cholecystectomy is indicated. The risk benefits were explained and documented. Procedure: Preoperative diagnosis: Biliary dyskinesia, gallbladder polyp Postoperative diagnosis: Same Procedure performed: Laparoscopic cholecystectomy Surgeon: Dr. Ok Bernabe DO Estimated blood loss: 5 mL Specimens: Gallbladder to pathology Complications: None apparent Description of procedure: Patient was wheeled into the operative room and placed on the OR table in a supine position. Abdomen was inspected prepped and draped in usual sterile fashion. Time-out was performed and all present were in agreement. A 15 blade scalp was used to make a stab incision in the left upper quadrant and intra- abdominal insufflation was achieved using a Veress needle. After localizing the tissue incisions were made and a 5 millimeter trocar was placed into the umbilicus as well as 2 in the right upper quadrant. A 12 millimeter trocar was placed in the epigastrium. Gallbladder was grasped and elevated. The triangle of Calot was carefully dissected using blunt dissection and electrocautery until the triangle of Calot clearly identified. The cystic duct was clipped proximally and double clipped distally. The duct was then ligated proximally. The cystic artery was doubly clipped and ligated. The gallbladder was then removed from the liver bed using electrocautery. The gallbladder was removed from the abdomen using an Endo-Catch bag through the epigastric incision. The liver bed was inspected and no bleeding was seen. The abdomen was irrigated and suctioned. All ports removed. Skin was washed and dried. Incisions were closed with 4-0 Monocryl in a subcuticular interrupted fashion. Skin glue was applied. Patient tolerated the procedure well.
--- NOTE | 2023-08-05 13:48 | ANE.PACU2 ---
Inpatient post-anesthesia follow up: Vital signs: Temperature 97.8 F Pulse Rate 53 Respiratory Rate 18 Blood Pressure 125/79 Pulse Oximetry 96 Oxygen Delivery Me thod Room Air Oxygen Flow Rate 6 Fraction of Inspir ed Oxygen Hydration adequate: Yes Nausea and vomiting: No Pain level: controlled Mental status: Baseline Additional Comments: no apparent anesthetic complcations noted
== END 2023-08-05 11:48 | disposition home or self-care (01) ==
PROVIDERS: PCP Nurse Practitioner Family; Visit Provider Surgery
PROC: 0FT44ZZ Resection of Gallbladder, Percutaneous Endoscopic Approach (ICD-10-PCS; CPT 47562; principal; 2023-08-05 10:15)
DX: K81.1 Chronic cholecystitis (principal); K82.8 Other specified diseases of gallbladder
CPT/HCPCS: 47562; 88304; J0131; J1100; J1170; J2405; J2704; J2710; J3010; J3370; J3490; J7030

== ENCOUNTER → 2023-08-12 13:00 | Outpatient (BNVA) | payer MEDICARE, OTHER, BC, SELFPAY | PROVIDERS: PCP Nurse Practitioner Family; Visit Provider Dermatology | DX: D48.5 Neoplasm of uncertain behavior of skin (principal); L02.12 Furuncle of neck; L02.821 Furuncle of head [any part, except face]; L57.0 Actinic keratosis; D23.39 Other benign neoplasm of skin of other parts of face; L57.8 Other skin changes due to chronic exposure to nonionizing radiation; Z85.858 Personal history of malignant neoplasm of other endocrine glands; Z85.820 Personal history of malignant melanoma of skin | CPT/HCPCS: 11102; 17000; 99214 ==

== ENCOUNTER → 2023-08-22 10:38 | Outpatient (BNVA) | payer MEDICARE, OTHER, BC, SELFPAY | PROVIDERS: PCP Nurse Practitioner Family; Visit Provider Surgery | DX: K21.9 Gastro-esophageal reflux disease without esophagitis (principal); Z90.49 Acquired absence of other specified parts of digestive tract | CPT/HCPCS: 99214 ==

== ENCOUNTER 2024-01-09 09:53 | Outpatient (CLI) | payer MEDICARE, OTHER, BC, SELFPAY ==
--- NOTE | 2024-01-09 09:58 | CT_ITS ---
WS: [id number] CT chest wo con [id number] HISTORY: MULTIPLE LUNG NODULES TECHNIQUE: Axial imaging performed through the thorax. Coronal and sagittal reformats are submitted. All CT scans at [facility] use at least one of these dose optimization techniques: automated exposure control; mA and/or kV adjustment per patient size (includes targeted exams where dose is mat ched to clinical indication); or iterative reconstruction. CONTRAST: Omnipaque 350; 100 mL IV. DLP: 474.58 mGy.cm COMPARISON: 05/13/2023 Lungs and central airway: Mild pulmonary hyperinflation. New spiculated nodule measuring 8 x 7 mm in the RIGHT lower lobe, image 34 of series 4. Additional 4 mm RIGHT perifissural nodule. The scattered areas of mild nodularity scattered throughout both lungs but greatest at the RIGHT lung base are iden tified. Some of these tiny nodules may be calcified. Suspect this is a benign process due to its stab ility. No focal areas of dense consolidation. Pleura: Normal. No pleural effusion. Heart and pericardium: Normal size heart with no pericardial effusion. Mediastinum and jalil: No mediastinum or hilar adenopathy. Vessels: Normal size aortic and pulmonary artery. No coronary artery calcifications. Chest wall and lower neck: No soft tissue masses. Upper abdomen: LEFT lobe hepatic cyst 1.1 x 1.8 cm is stable in size. Additional too small to charact erize hypodensity in the LEFT lobe. No adrenal mass. Prior cholecystectomy. Nonobstructing bilateral upper pole renal calculi. Small parapelvic cyst upper pole RIGHT kidney. Osseous structures: Increase in thoracic kyphosis. CT/CT chest wo con [id number] IMPRESSION: 1. New spiculated nodule 8 x 7 mm in the RIGHT lower lobe. Recommend follow-up chest CT with IV contrast in 3 months. 2. Additional new 4 mm RIGHT perifissural nodule. These are typically benign n odules. The additional scattered micronodules which were described on the prior chest from 05/13/2003 stable. 3. Prior cholecystectomy. 4. Hepatic cyst.
== END 2024-01-09 09:54 | disposition home or self-care (01) ==
LOC: RAD 09:55
PROVIDERS: PCP Nurse Practitioner Family; Visit Provider Nurse Practitioner Family
DX: R91.8 Other nonspecific abnormal finding of lung field (principal); Q44.6 Cystic disease of liver; Z90.49 Acquired absence of other specified parts of digestive tract; N20.0 Calculus of kidney; N28.1 Cyst of kidney, acquired
CPT/HCPCS: 71250

== ENCOUNTER → 2024-02-12 10:28 | Outpatient (BNVA) | payer MEDICARE, OTHER, BC, SELFPAY | PROVIDERS: PCP Nurse Practitioner Family; Visit Provider Nurse Practitioner Family | DX: D23.39 Other benign neoplasm of skin of other parts of face (principal); L57.8 Other skin changes due to chronic exposure to nonionizing radiation; Z85.820 Personal history of malignant melanoma of skin; Z85.828 Personal history of other malignant neoplasm of skin; L28.1 Prurigo nodularis; L53.8 Other specified erythematous conditions; L29.89 Other pruritus; L57.0 Actinic keratosis | CPT/HCPCS: 17000; 17110; 99213 ==

== ENCOUNTER 2024-03-10 09:50 | Outpatient (CLI) | payer MEDICARE, OTHER, BC, SELFPAY ==
--- NOTE | 2024-03-10 10:06 | CTR_ITS ---
PROCEDURE INFORMATION: Exam: CT Chest With Contrast; Diagnostic Exam date and time: 03/10/2024 10:30 AM Age: 74 years old Clinical indication: Condition or disease; Lung condition and disease; Pulmonary nodule, solitary; Additional info: Abnormal CT, lung nodules multiple TECHNIQUE: Imaging protocol: Diagnostic computed tomography of the chest with contrast. Radiation optimization: All CT scans at this facility use at least one of these dose optimization techniques: automated exposure control; mA and/or kV adjustment per patient size (includes targeted exams where dose is matched to clinical indication); or iterative reconstruction. Contrast material: OMNI 350; Contrast volume: 100 ml; Contrast route: INTRAVENOUS (IV); COMPARISON: CT chest wo con [id number] 01/09/2024 10:21 AM RADIATION DOSE METRICS: Total DLP (mGy-cm): 393.99 FINDINGS: Thyroid: The thyroid is unremarkable. Lungs: Stable mild hyperinflation. Previously demonstrated spiculated nodule in the right lower lobe is not well visualized likely due to volume averaging. Part of the nodule is seen on series 4, image 32 however evaluation is limited due to large slice thickness. Stable scattered tree-in-bud nodularity seen in the anterior right middle lobe, right lower lobe and left lower lobe similar to prior exam. Small right upper lobe parapelvic cysts. Pleural spaces: Unremarkable. No pneumothorax. No pleural effusion. Heart: Unremarkable. No cardiomegaly. No pericardial effusion. Lymph nodes: Stable right upper perifissural nodule measuring 4 mm suggesting intrapulmonary lymph node. Vasculature: No central or lobar pulmonary embolism. Liver: Stable hepatic cysts largest of which is seen in the left hepatic lobe measuring 30 x 16 mm Gallbladder and biliary ducts: Status post cholecystectomy. Kidneys: Punctate nonobstructing nephrolithiasis in the bilateral kidneys. Bones/joints: Unremarkable. No acute fracture. Soft tissues: Mild gynecomastia. CT/CT chest w con* [id number] IMPRESSION: 1. Previously demonstrated spiculated nodule in the right lower lobe is not well visualized on this examination however significantly limited due to slice thickness. Recommend repeat evaluation with high-resolution CT chest with thin slice sections. 2. Stable scattered tree-in-bud nodularity throughout the lungs some of which display calcifications likely representing benign granulomas and have been stable since 2003. 3. Stable hepatic cysts. 4. Stable punctate nonobstructing nephrolithiasis.
[2024-03-10 10:32] LABS: Blood Urea Nitrogen 11 mg/dL (8-23)
[2024-03-10] MEDS: iohexol 350 mg/mL 500 mL Btl (per mL) IV (10:41)
== END 2024-03-10 09:51 | disposition home or self-care (01) ==
LOC: RAD 09:51
PROVIDERS: Radiology Neuroradiology; PCP Nurse Practitioner Family; Visit Provider Nurse Practitioner Family
DX: R91.8 Other nonspecific abnormal finding of lung field (principal); Q44.6 Cystic disease of liver; N20.0 Calculus of kidney; Z90.49 Acquired absence of other specified parts of digestive tract
CPT/HCPCS: 71260; 82565; 84520

== ENCOUNTER 2024-04-08 15:26 | Outpatient (CLI) | payer MEDICARE, BC, SELFPAY ==
--- NOTE | 2024-04-08 15:28 | CT_ITS ---
WS: [id number] CT CHEST CT-HIGH RESOLUTION, NONCONTRAST. HISTORY: RIGHT lung nodule. Technique: High-resolution chest CT is performed in inspiration, expiration, supine and prone positio boni. All CT scans at [facility] use at least one of these dose optimization techniques: automated exposure control; mA and/or kV adjustment per patient size (includes targeted exams where dose is mat ched to clinical indication); or iterative reconstruction. DLP: 1123.80 mGy.cm COMPARISON: 03/10/2024, 01/09/2024, 05/13/2023 Findings: Pulmonary hyperinflation from emphysema. Previously described spiculated nodular RIGHT lowe r lobe is not identified. Stable 4 mm nodule RIGHT upper lobe. Stable 4 mm ovoid nodule RIGHT middle lobe. Bilateral reticular pulmonary opacifications noted in the anterior RIGHT middle lobe and at the lung bases. Some of these reticulations are closely associated with the fissures and the pleura. Sheryl y mild bronchial wall thickening with significant dilatation at the lung bases, greatest at the LEFT lung base. No significant bronchiectasis. No pericardial or pleural effusions. No mediastinal or hilar adenopathy. On prone imaging the reticul ar opacifications at the lung bases do not improve. There is no air trapping noted on expiration. Prior cholecystectomy. Nonobstructing calcification upper pole RIGHT kidney. No adrenal mass. No dest ructive bone lesions. CT/CT chest wo con [id number] Impression: 1. Previously described spiculated nodule on the CT of 01/09/2024 has resolved . 2. Short-term stability 4 mm nodules in the RIGHT upper and RIGHT middle lobes . Recommend 6-month noncontrast chest CT follow-up. 3. Stable pulmonary reticulations in the lung bases and in the RIGHT middle lo be which do not improve with prone positioning. No air trapping. 4. No bronchiectasis. No honeycombing.
== END 2024-04-08 15:27 | disposition home or self-care (01) ==
LOC: RAD 15:27
PROVIDERS: PCP Nurse Practitioner Family; Visit Provider Nurse Practitioner Family
DX: J44.9 Chronic obstructive pulmonary disease, unspecified (principal); R91.8 Other nonspecific abnormal finding of lung field; J64 Unspecified pneumoconiosis; J43.9 Emphysema, unspecified; Z90.49 Acquired absence of other specified parts of digestive tract; N28.89 Other specified disorders of kidney and ureter
CPT/HCPCS: 71250

== ENCOUNTER → 2024-08-04 10:35 | Outpatient (BNVA) | payer MEDICARE, BC, SELFPAY | PROVIDERS: PCP Nurse Practitioner Family; Visit Provider Nurse Practitioner Family | DX: L82.1 Other seborrheic keratosis (principal); L72.0 Epidermal cyst; L98.8 Other specified disorders of the skin and subcutaneous tissue; D23.39 Other benign neoplasm of skin of other parts of face; L57.8 Other skin changes due to chronic exposure to nonionizing radiation; L81.4 Other melanin hyperpigmentation; Z85.820 Personal history of malignant melanoma of skin; Z08 Encounter for follow-up examination after completed treatment for malignant neoplasm; Z85.828 Personal history of other malignant neoplasm of skin; L57.0 Actinic keratosis | CPT/HCPCS: 17000; 99213 ==

== ENCOUNTER → 2025-01-27 09:59 | Outpatient (BNVA) | payer MEDICARE, BC, SELFPAY | PROVIDERS: PCP Nurse Practitioner Family; Referring Provider Nurse Practitioner Family; Visit Provider Internal Medicine | DX: J43.9 Emphysema, unspecified (principal); R91.8 Other nonspecific abnormal finding of lung field; Z99.89 Dependence on other enabling machines and devices; J44.9 Chronic obstructive pulmonary disease, unspecified; J84.9 Interstitial pulmonary disease, unspecified; J47.9 Bronchiectasis, uncomplicated | CPT/HCPCS: 36415; 82103; 82164; 82784; 99204; Q3014 ==

== ENCOUNTER 2025-02-03 12:39 | Outpatient (CLI) | payer MEDICARE, BC, SELFPAY ==
--- NOTE | 2025-02-03 13:45 | CTR_ITS ---
PROCEDURE INFORMATION: Exam: CT Chest Without Contrast; Diagnostic Exam date and time: 02/03/2025 1:27 PM Age: 74 years old Clinical indication: Condition or disease; Lung condition and disease; Pulmonary nodule, solitary; Prior surgery; Surgery date: 6+ months; Surgery type: Gb; Additional info: Lung nodules TECHNIQUE: Imaging protocol: Diagnostic computed tomography of the chest without contrast. Radiation optimization: All CT scans at this facility use at least one of these dose optimization techniques: automated exposure control; mA and/or kV adjustment per patient size (includes targeted exams where dose is matched to clinical indication); or iterative reconstruction. COMPARISON: CT chest wo con [id number] 04/08/2024 3:28 PM RADIATION DOSE METRICS: Total DLP (mGy-cm): 456.96 FINDINGS: Trachea: Linear parenchymal scarring is seen in both lung bases. Stable scattered tree-in-bud nodularity is seen in the right lower lobe and left lower lobe medially, similar to the prior exam. There is also associated calcifications suggestive of granulomatous disease. There was a nodule in the right lower lobe with spiculation seen on 04/08/2024 which is not seen on today's exam. Lungs: No consolidation. No masses. No endobronnchial lesion. No bronchiectasis.u Pleural spaces: Unremarkable. No pneumothorax. No pleural effusion. Heart: No cardiomegaly. No pericardial effusion. There are no coronary artery calcifications. Lymph nodes: Stable small right perifissural lymph node is again demonstrated. Vasculature: Mild aortic plaque. No aortic aneurysm. Bones/joints: Unremarkable. No acute fracture. Soft tissues: Unremarkable. Other findings: There is a small nonobstructing calculus in the upper pole of the right kidney. There is mild right pelviectasis. There are cholecystectomy clips in the right upper quadrant. There are small hepatic cysts. There is mild gynecomastia. CT/CT chest wo con [id number] IMPRESSION: 1. No evidence for acute pathology in the thorax. Previously described spiculated nodule in the right lower lobe is not seen on today's exam. 2. Stable scattered tree-in-bud nodularity throughout the lungs with calcification probably granulomatous disease and or sequelae of prior infection. 2. Right renal nonobstructing calculus. 3. Mild right hydronephrosis. 4. Status post cholecystectomy.
== END 2025-02-03 12:40 | disposition home or self-care (01) ==
LOC: RAD 12:39
PROVIDERS: PCP Nurse Practitioner Family; Visit Provider Internal Medicine
DX: J44.9 Chronic obstructive pulmonary disease, unspecified (principal); J84.10 Pulmonary fibrosis, unspecified; N20.0 Calculus of kidney; R91.8 Other nonspecific abnormal finding of lung field; R59.0 Localized enlarged lymph nodes; R93.41 Abnormal radiologic findings on diagnostic imaging of renal pelvis, ureter, or bladder; Z96.89 Presence of other specified functional implants; N62 Hypertrophy of breast; Z90.49 Acquired absence of other specified parts of digestive tract; N13.30 Unspecified hydronephrosis
CPT/HCPCS: 71250

== ENCOUNTER → 2025-02-04 10:27 | Outpatient (BNVA) | payer MEDICARE, BC, SELFPAY | PROVIDERS: PCP Nurse Practitioner Family; Visit Provider Nurse Practitioner Family | DX: L82.1 Other seborrheic keratosis (principal); L57.8 Other skin changes due to chronic exposure to nonionizing radiation; Z85.820 Personal history of malignant melanoma of skin; Z08 Encounter for follow-up examination after completed treatment for malignant neoplasm; Z85.828 Personal history of other malignant neoplasm of skin; L57.0 Actinic keratosis | CPT/HCPCS: 17000; 99213 ==

== ENCOUNTER → 2025-03-01 08:55 | Outpatient (BNVA) | payer MEDICARE, BC, SELFPAY | PROVIDERS: PCP Nurse Practitioner Family; Visit Provider Internal Medicine | DX: J43.9 Emphysema, unspecified (principal); J44.89 Other specified chronic obstructive pulmonary disease; R91.8 Other nonspecific abnormal finding of lung field; Z99.89 Dependence on other enabling machines and devices | CPT/HCPCS: 99214; Q3014 ==

== ENCOUNTER 2025-03-14 13:52 | Outpatient (CLI) | payer MEDICARE, BC, SELFPAY | END 2025-03-14 13:53 | disposition home or self-care (01) | LOC: RT 13:53 | PROVIDERS: PCP Nurse Practitioner Family; Visit Provider Internal Medicine | DX: J44.9 Chronic obstructive pulmonary disease, unspecified (principal); R94.2 Abnormal results of pulmonary function studies | CPT/HCPCS: 94060; 94726; 94729 ==